=== PATIENT | male | born 1935 | race Caucasian/White ===

== ENCOUNTER → 2020-05-03 07:00 | Outpatient (CLI) | payer MEDICARE, BC, SELFPAY ==
--- NOTE | 2020-05-03 | DI.ECHO.S_ITS ---
[facility] +---------+ : : [address] : [address] : : : : [id number] : : : : Phone: [phone]+ Echocardiogram Report + + :Name: MAIA UNGER Study Date: 05/03/2020 Height: 70 in : :[facility] Weight: 174 lb : : Gender: Male BSA: 2.0 m2 : :: 1935 Age: 84 yrs BP: 130/80 mmHg: :Reason For Study: Cardiomyopathy, Ischemic : :Ordering Physician: Delfino : :[place] Performed By: Keily Mckenna : + + Interpretation Summary Left ventricular systolic function is moderately reduced with the ejection fraction grossly estimated to be 30-35% with moderate global hypokinesis that is more prominent in the septum and apex where 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 Global contractility is less dynamic and there is now a significant dyssynchronous contraction pattern due to the paced rhythm. Diastolic function is difficult to assess but there is no evidence for significantly elevated filling pressures. The right ventricle is mildly dilated and systolic function is mildly reduced and appears slightly larger and less dynamic compared to the previous study. The right ventricular systolic pressure is estimated to be at least 20 mmHg based on an estimated right atrial pressure of 3 mm Hg. Both atria are severely dilated. Both atria have significantly increased in size since the prior echo exam. There is mild to moderate mitral regurgitation and mild to moderate tricuspid regurgitation that are unchanged, perhaps slightly more prominent compared to the previous study. There is no other significant valvular heart disease. The ascending aorta is mildly enlarged and measures larger compared to the previous study. Procedure: A two-dimensional transthoracic echocardiogram with color flow and Doppler was performed. The study quality was technically adequate. Comparison is made with the echocardiogram of 09/18/2013. The patient was in atrial flutter with heart rates between 59-72 bpm during the exam. Left Ventricle: The left ventricle is normal in size. Left ventricular wall thickness is mildly increased. 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 There is no ventricular septal defect visualized. Left ventricular systolic function is moderately reduced. The ejection fraction is estimated to be 30-35%. There is moderate global hypokinesis of the left ventricle. There is a significant dyssynchronous contraction pattern due to the paced rhythm. This is more prominent compared to the previous study. And is more prominent in the septum and apex. Diastolic function could not be accurately assessed due to atrial fibrillation. Right Ventricle: There is a pacemaker lead in the right ventricle. The right ventricle is mildly dilated. Right ventricular systolic function is mildly reduced. This is slightly larger and less dynamic compared to the previous study. Atria: Both atria are severely dilated. Both atria have significantly increased in size since the prior echo exam. There is no Doppler evidence for an interatrial shunt. Mitral Valve: There is mild mitral annular calcification. There is mild to moderate mitral regurgitation. This is unchanged compared to the previous study. Aortic Valve: The aortic valve is trileaflet. The aortic valve is mildly calcified. There is mildly reduced leaflet mobility. There is no aortic valve stenosis. There is trace aortic regurgitation. Tricuspid Valve: The tricuspid valve is not well visualized, but is grossly normal. There is mild to moderate tricuspid regurgitation. The right ventricular systolic pressure is estimated to be at least 20 mmHg based on an estimated right atrial pressure of 3 mm Hg. Pulmonic Valve: The pulmonic valve leaflets are thin and pliable; valve motion is normal. There is mild pulmonic regurgitation. There is no other significant valvular heart disease. Great Vessels: The aortic root is normal size. The ascending aorta is mildly enlarged. This is larger compared to the previous study. The aortic arch could not be visualized. The IVC is of normal diameter and collapses greater than 50% with a sniff. This suggests a low right atrial pressure of 3 mm Hg. Pericardium/ Pleura There is no pericardial effusion. MMode/2D Measurements & Calculations LVIDd: 5.0 cm LVOT diam: 2.0 cm LVIDs: 3.9 cm Ao root diam: 3.2 cm FS: 21.3 % asc Aorta Diam: 3.8 cm EPSS: 0.46 cm IVSd: 1.2 cm LVPWd: 1.1 cm LV cancino. diameter/BSA (cm/m^2): 2.5 LV sys. diameter/BSA (cm/m^2): 2.0 LA A2 area: 33.0 cm2 RA long axis: 7.3 cm LA A4 area: 41.0 cm2 RA area: 35.0 cm2 LA length (vol): 7.3 cm RA vol: 143.8 ml LA vol: 157.7 ml RA : 73.1 ml/m2 LA vol index: 80.2 ml/m2 IVC diam: 1.9 cm RVD1 (basal): 4.9 cm RVD2 (mid): 3.8 cm TAPSE: 1.0 cm Doppler Measurements & Calculations Ao V2 max: 102.2 cm/sec LVOT Max Jesse: 48.9 cm/sec Ao V2 mean: 72.9 cm/sec LV V1 max P.96 mmHg Ao max P.2 mmHg LV V1 VTI: 7.8 cm Ao mean P.4 mmHg DONNA(I,D): 1.4 cm2 Ao V2 VTI: 17.4 cm DONNA(V,D): 1.5 cm2 sev ratio: 0.45 DONNA indexed to BSA (cm^2/m^2): 0.70 MV E max jesse: 52.7 cm/sec TR max jesse: 202.8 cm/sec MV A max jesse: 15.5 cm/sec TR max P.5 mmHg MV E/A: 3.4 PA V2 max: 58.9 cm/sec Med Peak E' Jesse: 5.5 cm/sec PA V2 mean: 38.8 cm/sec E/E' med: 9.5 PA mean P.72 mmHg Lat Peak E' Jesse: 12.8 cm/sec PA Accel Time: 0.08 sec E/E' lat: 4.1 E/e' average: 6.8 MV dec time: 0.25 sec MV P1/2t: 74.3 msec MV P1/2t max jesse: 53.1 cm/sec MR PISA: 0.33 cm2 MVA(P1/2t): 3.0 cm2 MR flow rate: 12.2 cm3/sec MR PISA radius: 0.23 cm SV(LVOT): 23.8 ml Reading Physician:VITA
== END ==
PROVIDERS: Referring Provider Specialist; Visit Provider Specialist
DX: I08.1 Rheumatic disorders of both mitral and tricuspid valves (principal); I77.89 Other specified disorders of arteries and arterioles; I25.5 Ischemic cardiomyopathy; Z95.0 Presence of cardiac pacemaker
CPT/HCPCS: 93306